=== PATIENT | female | born 1960 | race Caucasian/White ===

== ENCOUNTER 2017-06-11 21:29 | Emergency (ER) | payer BC ==
[~2017-06-11] VITALS: Ht 162.6 cm; Wt 102.9 kg
[2017-06-11 21:33] VITALS: Ht 162.6 cm; Wt 102.9 kg
[2017-06-11] MEDS ORDERED: LORAZEPAM 2 MG/ML 1 ML VIAL IV STA (21:52)
[2017-06-11 22:05] VITALS: O2SAT 95
[2017-06-11 22:15] LABS: HEMATOCRIT 34.9 % (37-47); HEMOGLOBIN 11.8 g/dL (12.0-16.0); MEAN CELL VOLUME 88.8 fL (80-100); MEAN CORPUSCULAR HGB CONC 33.8 g/dl (32-36); PLATELET COUNT 248 K/uL (130-400); RED CELL DISTRIBUTION WIDTH CV 13.1 % (11.5-14.5); RED CELL DISTRIBUTION WIDTH SD 42.8 fL (36.4-46.3); WHITE BLOOD COUNT 16.21 K/uL (4.8-10.8)
[2017-06-11] MEDS ORDERED: FURO-85 PO (22:27)
[2017-06-11] MEDS ORDERED: HYDR-4079 PO (22:27)
[2017-06-11] MEDS ORDERED: CITA20TA9 PO (22:27)
[2017-06-11] MEDS ORDERED: CALC600T9 PO (22:27)
[2017-06-11] MEDS ORDERED: ALBU18002 INH (22:27)
[2017-06-11] MEDS ORDERED: MULT-240 PO (22:27)
[2017-06-11 22:33] LABS: ALBUMIN 3.5 gm/dl (3.4-5.0); ALT/SGPT 44 U/L (12-78); BLOOD UREA NITROGEN 24 mg/dl (7-18); CALCIUM 8.7 mg/dl (8.5-10.1); CARBON DIOXIDE 23 mmol/L (21-32); CREATININE 1.26 mg/dl (0.60-1.20); GLUCOSE 146 mg/dl (70-99); POTASSIUM 3.5 mmol/L (3.5-5.1); SODIUM 132 mmol/L (136-145)
[2017-06-11 22:44] LABS: ALKALINE PHOSPHATASE 109 U/L (45-117); AST/SGOT 31 U/L (15-37); CKMB < 0.5 ng/ml (0.5-3.6); TOTAL PROTEIN 7.4 gm/dl (6.4-8.2)
[2017-06-11 22:48] LABS: BASO % 0.1 %; BASO ABS # 0.01 K/uL (0-0.2); IG# 0.08 K/uL (0.00-0.02); LYMPH % 2.7 %; LYMPH ABS # 0.44 K/uL (1.2-3.4); MONO % 4.6 %; MONO ABS # 0.74 K/uL (0.11-0.59); NEUT % 92.1 %; NEUT ABS # 14.94 K/uL (1.4-6.5)
[2017-06-11] MEDS ORDERED: ACETAMINOPHEN 500 MG TAB PO STA (23:23)
[2017-06-11] MEDS ORDERED: SODIUM CHLORIDE 0.9% 1000ML 1,000 ML IV STA (23:23)
[2017-06-11 23:52] LABS: INFLUENZA B ANTIGEN Neg for Influ B (NEG)
[2017-06-11] MEDS ORDERED: AZITHROMYCIN 250 MG TAB PO STA (23:53)
[2017-06-11] MEDS ORDERED: AMOXICILLIN 250 MG CAP PO STA (23:53)
[2017-06-12 00:01] VITALS: BP 106/75; PULSE 94; TEMP 38.1; O2SAT 96
[2017-06-12] MEDS ORDERED: IBUPROFEN 800 MG TAB PO STA (00:02)
[2017-06-12] MEDS ORDERED: AZIT250T PO (00:07)
[2017-06-12] MEDS ORDERED: AMOX500C3 PO (00:07)
--- NOTE | 2017-06-12 04:27 | EMERGENCY ROOM VISIT NOTE ---
History First contact with patient: 21:37 Chief Complaint: ANXIETY Stated Complaint: HEADACHE, BODYACHES, ABDOMINAL PAIN, HEART PAIN Nursing Triage Summary: pt reports I have a hx of panic attacks and over the last weeks work is supper stressful and I have had an increase in these attacks . I also have uncontrollable crying . I have had 2 very bad attacks yesterday and today that leave my whole body aching and now have a BERKOWITZ that will not leave up. took advil 2 times today with no relief. History of Present Illness The patient is a 56 year old female who presents to the Emergency Room with complaints of stressful past 2 weeks at work who felt shaky and anxious yesterday and today. Patient also complains of headache. Patient states she has not had an anxiety attack in years. She states she has been very stressed out though these past few weeks at work. Patient states her whole body feels achy. Patient denies chest pain, dyspnea, fever, chills, cough, congestion, abdominal pain, neck stiffness, sore throat. She is tolerating p.o. fluids but has a lack of appetite. Review of Systems An 10 system review of systems was completed with positives and pertinent negatives listed in the HPI. Past Medical/Surgical History Hypertension, arthritis, asthma, hysterectomy, gastric bypass Social History Smoking Status: Never Smoker Smokeless Tobacco Use: No Drug Use: none Occupation Status: employed Current/Historical Medications Scheduled Amoxicillin (Amoxil), 1,000 MG PO BID Azithromycin (Zithromax), 250 MG PO DAILY Calcium Carbonate-Vitamin D (Calcium + D), 1 TAB PO DAILY Citalopram Hydrobromide (Celexa), 20 MG PO DAILY Multiple Vitamins W/ Minerals (Womens One Daily), 1 TAB PO DAILY Scheduled PRN Albuterol Sulfate (Proair Respiclick), 2 PUFFS INH UD PRN for SOB/Wheezing Furosemide (Lasix), 20 MG PO DAILY PRN for Fluid Retention Hydrocodone/Acetaminophen 10MG/325MG ([place] 10MG/325MG), 1 TAB PO Q6H PRN for Pain Physical Exam Vital Signs Date Time Temp Pulse Resp B/P (MAP) Pulse Ox O2 Delivery O2 Flow Rate FiO2 06/12/17 00:01 38.1 94 20 106/75 96 Room Air 06/11/17 23:15 39.1 101 20 123/85 96 Room Air 06/11/17 22:05 95 Room Air 06/11/17 22:03 103 06/11/17 21:33 37.8 110 20 120/75 97 Room Air Physical Exam VITALS: Vitals are noted on the nurse's note and reviewed by myself. Vital signs low-grade fever. GENERAL: Pleasant female, in no acute distress, nondiaphoretic, well-developed well-nourished. SKIN: The skin was without rashes, erythema, edema, or bruising. There is no tenting of the skin. Capillary reflex less than 2 seconds. HEAD: Normocephalic atraumatic. EARS: External auditory canals clear, tympanic membranes pearly dickerson without erythema or effusion bilaterally. EYES: Pupils equal round and reactive to light and accommodation. Conjunctivae without injection, sclerae without icterus. Extraocular movements intact. NOSE: Patent, turbinates without inflammation or discharge. No sinus tenderness. MOUTH: Mucous membranes mildly dry pharynx without erythema or exudate. Uvula midline. Airway patent. Tongue does not deviate. NECK: Supple without nuchal rigidity. No lymphadenopathy. No thyromegaly. Cervical spine is nontender. No JVD. HEART: Regular rate and rhythm without murmurs gallops or rubs. LUNGS: Clear to auscultation bilaterally without wheezes, rales or rhonchi. No retractions or accessory muscle use. ABDOMEN: Positive bowel sounds x 4. Normal tympanic percussion. Soft, nontender, without masses or organomegaly. Arguelles sign negative. No guarding or rebound tenderness. No CVA tenderness MUSCULOSKELETAL: No muscle atrophy, erythema, or edema noted. NEURO: Patient was alert and oriented to person place and time. Normal sensation to light and sharp touch. No focal neurological deficits. Medical Decision & Procedures Laboratory Results 06/11/17 22:05 Red Blood Count 3.93, Mean Corpuscular Volume 88.8, Mean Corpuscular Hemoglobin 30.0, Mean Corpuscular Hemoglobin Concent 33.8, Mean Platelet Volume 10.0, Neutrophils (%) (Auto) 92.1, Lymphocytes (%) (Auto) 2.7, Monocytes (%) (Auto) 4.6, Eosinophils (%) (Auto) 0.0, Basophils (%) (Auto) 0.1, Neutrophils # (Auto) 14.94, Lymphocytes # (Auto) 0.44, Monocytes # (Auto) 0.74, Eosinophils # (Auto) 0.00, Basophils # (Auto) 0.01 06/11/17 22:05 Test 06/11/17 22:05 06/11/17 23:25 White Blood Count 16.21 K/uL (4.8-10.8) Red Blood Count 3.93 M/uL (4.2-5.4) Hemoglobin 11.8 g/dL (12.0-16.0) Hematocrit 34.9 % (37-47) Mean Corpuscular Volume 88.8 fL (80-100) Mean Corpuscular Hemoglobin 30.0 pg (25-34) Mean Corpuscular Hemoglobin Concent 33.8 g/dl (32-36) Platelet Count 248 K/uL (130-400) Mean Platelet Volume 10.0 fL (7.4-10.4) Neutrophils (%) (Auto) 92.1 % Lymphocytes (%) (Auto) 2.7 % Monocytes (%) (Auto) 4.6 % Eosinophils (%) (Auto) 0.0 % Basophils (%) (Auto) 0.1 % Neutrophils # (Auto) 14.94 K/uL (1.4-6.5) Lymphocytes # (Auto) 0.44 K/uL (1.2-3.4) Monocytes # (Auto) 0.74 K/uL (0.11-0.59) Eosinophils # (Auto) 0.00 K/uL (0-0.5) Basophils # (Auto) 0.01 K/uL (0-0.2) RDW Standard Deviation 42.8 fL (36.4-46.3) RDW Coefficient of Variation 13.1 % (11.5-14.5) Immature Granulocyte % (Auto) 0.5 % Immature Granulocyte # (Auto) 0.08 K/uL (0.00-0.02) Toxic Vacuolation 1+ Dohle Bodies 1+ Anion Gap 10.0 mmol/L (3-11) Est Creatinine Clear Calc Drug Dose 59.6 ml/min Estimated GFR () 55.9 Estimated GFR (Non- 48.3 BUN/Creatinine Ratio 18.9 (10-20) Calcium Level 8.7 mg/dl (8.5-10.1) Magnesium Level 2.1 mg/dl (1.8-2.4) Total Bilirubin 0.5 mg/dl (0.2-1) Direct Bilirubin 0.2 mg/dl (0-0.2) Aspartate Amino Transf (AST/SGOT) 31 U/L (15-37) Alanine Aminotransferase (ALT/SGPT) 44 U/L (12-78) Alkaline Phosphatase 109 U/L (45-117) Total Creatine Kinase 42 U/L (26-192) Creatine Kinase MB < 0.5 ng/ml (0.5-3.6) Creatine Kinase MB Ratio (0-3.0) Troponin I < 0.015 ng/ml (0-0.045) Total Protein 7.4 gm/dl (6.4-8.2) Albumin 3.5 gm/dl (3.4-5.0) Thyroid Stimulating Hormone (TSH) 1.290 uIu/ml (0.300-4.500) Influenza Type A Antigen Neg for Influ A (NEG) Influenza Type B Antigen Neg for Influ B (NEG) Medications Administered Medications (Trade) Dose Ordered Sig/Damien Route Start Time Stop Time Status Last Admin Dose Admin Lorazepam (Ativan Inj) 1 mg NOW STAT IV 06/11/17 21:52 06/11/17 21:54 DC 06/11/17 22:10 1 MG Sodium Chloride 1,000 ml @ 999 mls/hr Q1H1M STAT IV 06/11/17 23:23 06/12/17 00:23 DC 06/11/17 23:27 999 MLS/HR Acetaminophen (Tylenol Tab) 1,000 mg NOW STAT PO 06/11/17 23:23 06/11/17 23:25 DC 06/11/17 23:29 1,000 MG Azithromycin (Zithromax Tab) 500 mg NOW STAT PO 06/11/17 23:53 06/11/17 23:54 DC 06/11/17 23:59 500 MG Amoxicillin (Amoxil Cap) 1,000 mg NOW STAT PO 06/11/17 23:53 06/11/17 23:54 DC 06/11/17 23:59 1,000 MG Ibuprofen (Motrin Tab) 800 mg NOW STAT PO 06/12/17 00:02 06/12/17 00:03 DC 06/12/17 00:14 800 MG ED Course Prior records/ancillary studies reviewed and summarized above. Nursing notes reviewed. Additional history obtained from friends. The patient's history was concerning for shakiness who has been under more stress lately. Differential diagnosis: Etiologies such as anxiety, metabolic, infection, hypo/hyperglycemia, electrolyte abnormalities, cardiac sources, intracerebral event, toxicologic, neurologic, as well as others were entertained. Physical examination: As above. ER treatment provided: IV Lock Ativan, IV fluids, Tylenol, Motrin, Zithromax, amoxicillin On reassessment the patient felt better. Diagnostics interpretation by me: ECG: Normal sinus, normal intervals, Q waves in the inferior leads, no acute ST- T wave changes, rate of 101. Impression sinus tachycardia with Q waves in inferior leads interpreted by myself. EKG compared to prior EKG from May 04, 2012 with no acute changes noted. This was obtained through the [employer] system by case management. The labs revealed leukocytosis, negative influenza Imaging studies: Chest x-ray concerning for possible developing right middle lobe pneumonia per my interpretation and my attending Exam and history seem consistent with pneumonia. Patient had a fever here and was given Tylenol and Motrin. She was started on antibiotics. Patient was not hypoxic. Her pressure was stable. She did not realize she was getting sick. 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 Patient was advised to take medications as directed, rest, stay well-hydrated and to follow-up with family care in a few days here in the ER sooner for high fevers, lethargy, difficulty breathing, neck stiffness, worsening signs or symptoms or as needed. By the evaluation outlined above emergent etiologies such as electrolyte abnormalities, cardiac sources, intracerebral event, toxologic, neurologic, abnormalities blood glucose, metabolic, as well as others were deemed relatively unlikely. The pt informed about the findings as listed above. All questions were answered and pleased with the treatment. Return instructions were outlined and the patient was discharged in stable condition. Outpatient prescription management: Zithromax, amoxicillin Referral: The patient was referred back to primary care physician for follow-up in 2 to 3 days for a recheck of the current condition. Case reviewed with my attending The chart was completed utilizing [employer] voice recognition software. Grammatical errors, random word insertions, pronoun errors, and incomplete sentences are an occassional consequence of this system due to software limitations, ambient noise, and hardware issues. Any formal questions or concerns about the content, text, or information contained within the body of this dictation should be directly addressed to the physician litigation legal assistant for clarification. Medical Decision as above Medication Reconcilliation Current Medication List: was personally reviewed by me Blood Pressure Screening Patient's blood pressure: Normal blood pressure Impression Primary Impression: Pneumonia Departure Information Dispostion Home / Self-Care Condition GOOD Prescriptions Azithromycin (Zithromax) 250 Mg Tab 250 MG PO DAILY for 4 Days, #4 TAB Prov: Chiquita Reddy PA-C 06/12/17 Amoxicillin (AMOXIL) 500 Mg Cap 1000 MG PO BID for 10 Days, #40 CAP Prov: Chiquita Reddy PA-C 06/12/17 Forms HOME CARE DOCUMENTATION FORM, Work Instructions, Return To Work: 5 days IMPORTANT VISIT INFORMATION Patient Instructions Pneumonia, My [facility] Additional Instructions DO NOT drive, drink alcohol, operate machinery, or perform dangerous activities today. You were given medications in the ER that can affect your ability to safely function or operate a vehicle. Azithromycin(Zithromax) 250mg: Take one a day for 4 additional days. All antibiotics can cause diarrhea. If this occurs and you feel worse or it does not resolve in 1-2 days follow up with your doctor or return to the Emergency Department as this could be signs of serious underlying problems. Any medication can cause an allergic reaction, stop the pills immediately and return to the ER for rash, hives, breathing difficulties, or swelling. Amoxicillin 500mg: Take 2 tablets (1000mg) twice a day for 10 days for your infection. All antibiotics can cause diarrhea. If this occurs and you feel worse or it does not resolve in 1-2 days follow up with your doctor or return to the Emergency Department as this could be signs of serious underlying problems. Any medication can cause an allergic reaction, stop the pills immediately and return to the ER for rash, hives, breathing difficulties, or swelling. Acetaminophen(Tylenol) may be used for fever or pain. Use 1000mg every six hours as needed. Avoid using more than 3000mg in a 24 hour period. AND/OR Ibuprofen(Motrin, Advil) may be used for fever or pain. Use 600mg every six hours as needed. Take with food. Avoid using more than 2400mg in a 24 hour period. Do not use 2400mg per day for more than three consecutive days without physician direction. Prolonged inappropriate use can lead to stomach upset or ulcers. Controlling your fever with Tylenol and Ibuprofen as above will make you feel better. Rest and drink plenty of fluids. Avoid strenuous activity until your symptoms resolve and your breathing returns to normal. Continue current medications. Return to the ER for chest pain, difficulty breathing, persistent fevers, vomiting, worsening of your condition, or as needed. Follow-up with family care in 2-3 days. Work Instructions Return To Work: 5 days Problem Qualifiers Primary Impression: Pneumonia Pneumonia type: due to unspecified organism Laterality: right Lung location : middle lobe of lung Qualified Codes: J18.1 - Lobar pneumonia, unspecified organism
--- NOTE | 2017-06-12 07:16 | DIAGNOSTIC IMAGING REPORT ---
CHEST 2 VIEWS ROUTINE CLINICAL HISTORY: 56 years-old Female presenting with fever. TECHNIQUE: PA and lateral views of the chest were obtained. COMPARISON: None. FINDINGS: Atherosclerosis of the aortic arch. Cardiac silhouette normal in size. Blunting of the left lateral costophrenic sulcus without evidence of a left pleural effusion. Lungs and pleural spaces clear. Degenerative changes of the thoracic spine. Upper abdomen normal. IMPRESSION: 1. No acute cardiopulmonary disease. Electronically signed by: Bunny Aden M.D. 06/12/2017 7:15 AM Dictated Date/Time: 06/12/2017 7:14 AM
== END 2017-06-12 00:20 | disposition home or self-care (01) ==
LOC: C.EDB 21:31
DX: J18.1 Lobar pneumonia, unspecified organism (principal); I10 Essential (primary) hypertension; M19.90 Unspecified osteoarthritis, unspecified site; J45.909 Unspecified asthma, uncomplicated

== ENCOUNTER 2021-10-31 23:05 | Inpatient (IN) ==
--- NOTE | 2021-10-31 23:37 | Emergency Department Note ---
Impression & Plan Acute hyponatremia Admit to the [facility] service ED Provider Note NAME: BIJU IRBY AGE: 60 SEX: F ARRIVES VIA: Ambulance INFORMANT: Patient ED PROVIDER(S): Yeni Ellis DO CHIEF COMPLAINT: Confusion PLAN: Disposition: Admit to the [facility] Condition: Stable MEDICAL DECISION MAKING: This is a 60-year-old female patient who presents to the emergency department from work after an episode of confusion. Patient had a normal blood sugar here in the emergency department. She went for CT scan of the brain which was unremarkable. The patient was noted to be significantly hyponatremic. She did give a history that she drank a significant amount of water and a new 30 ounce cup that she purchased on [employer]. It seems that she may have drank between 90 and 120 ounces of water within 8 hours. In reviewing the patient's previous laboratory studies, she has had previous mild low sodium. Patient was given IV normal saline here in the emergency department and I discussed the case with the [facility]ist and they will evaluate for further management. Triage Nursing notes reviewed and agree with them. Additional history obtained from patient's daughter who was at the bedside. Vital Signs: reviewed and unremarkable Differential diagnosis: Hypoglycemia; TIA; anxiety; insomnia; electrolyte abnormality ER treatment provided: IV normal saline Diagnostics interpreted by me: ECG: Sinus bradycardia at a rate of [address] segment elevation or signs of ischemia. There is no ectopy. Cardiac Monitoring: Normal sinus rhythm at 72 Laboratory studies: See below Imaging studies: As per stat rad CT HEAD: No intracranial hemorrhage, abnormal intra- or extra-axial collections or parenchymal lesions are seen. The shape and configuration of the cortical sulci, basal cisterns and ventricles are within normal limits. The post-white differentiation is preserved. No evidence of mass effect, midline shift, or edema. The osseous structures are unremarkable. The visualized portions of the paranasal sinuses are clear. IMPRESSION: Normal non-contrast CT scan of the head. HPI: 60/F arrives for evaluation of confusion. The patient was at work and had an episode of confusion around 5 PM this evening she was unable to remember how to log into her computer and then around 10 PM this evening the same thing occurred where she was unable to remember her last name. Patient's blood sugar was taken at that time and it was 80. She explains that she has had episodes of confusion and was noted to have low blood sugars in the 30s. ROS: See above HPI for pertinent positives & negatives. A total of 10 systems reviewed and were otherwise negative. PAST MEDICAL HISTORY:Osteoarthritis, hypertension, anxiety/depression PAST SURGICAL HISTORY:Gastric bypass surgery FAMILY HISTORY:See Below SOCIAL HISTORY:Patient denies any alcohol use. HOME MEDICATIONS:See list ALLERGIES:None VITALS:See Below PHYSICAL EXAMINATION: HEENT: Head - normocephalic and atraumatic. Pupils are equal, round, and reactive to light. Extraocular eye muscles are intact and sclera are anicteric. Ears - bilaterally patent canals with noninjected tympanic membranes and no evidence of hemotympanum. Nose - moist nasal mucosa without discharge. Mouth - moist buccal mucosa. Oropharynx is nonerythematous and there is no tonsillar exudate or edema noted. Neck: Supple; no cervical lymphadenopathy or thyromegaly Heart: Regular rate and rhythm. There is a normal S1 and S2 with no murmurs, cl icks, or gallops appreciated. Lungs: Clear to auscultation bilaterally with no wheezes, rales, or rhonchi. Abdomen: Soft, completely nontender, nondistended, with good bowel sounds. There are no palpable pulsatile masses or hepatosplenomegaly. There is no guarding, rigidity, or rebound noted. Extremities: No evidence of cyanosis, clubbing, or edema. There are easily palpable peripheral pulses. Neuro:The patient is awake and alert, oriented to day, time, and place. Muscle strength is 5/5 in all 4 extremities. 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 There are no cerebellar signs. ED COURSE: Times/Reassessments: 2315: The patient was evaluated in room C1. A complete history and physical was performed. A twelve-lead EKG was obtained as described above. An order was placed for continuous cardiac monitoring. The patient was in a normal sinus rhythm at a rate of 72. The patient was bolused with a liter of normal saline solution. Discussed the case with the [facility] Hospitalist and they will evaluate for further management. 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 Beliefs That Will Affect Care: None Current Living Situation: Family Other Information That Helps Us Care for You: No Feels Safe at Home: Yes Safety Concerns: Feels Safe At This Time Allergies Allergies Allergy/AdvReac Type Severity Reaction Status Date / Time No Known Allergies Allergy Unknown Verified 10/31/21 23:55 Home Meds Home Medications Medication Instructions Recorded Confirmed acetaminophen 500 mg tablet 1,000 mg PO DIRECTED PRN Pain 10/31/21 10/31/21 (Tylenol Extra Strength) clonazepam 0.5 mg tablet 0.5 mg PO BID PRN Anxiety 10/31/21 10/31/21 docusate sodium 250 mg capsule 250 mg PO TID 10/31/21 10/31/21 (Stool Softener) losartan 25 mg tablet 25 mg PO DAILY 10/31/21 10/31/21 metoprolol tartrate 50 mg tablet 50 mg PO BID 10/31/21 10/31/21 paroxetine HCl 10 mg tablet 10 mg PO Q12H 10/31/21 10/31/21 psyllium husk 0.52 gram capsule 2.18 g PO TID 10/31/21 10/31/21 Results & Data (ED) Vital Signs Vital Signs - 24 hr 10/31/21 23:32 10/31/21 23:32 10/31/21 23:32 Temperature 37.1 C Temperature Source Oral Pulse Rate 57 L Pulse Rate [Apical] Respiratory Rate 18 Respiratory Effort / Characteristics Non-Labored Spontaneous Respiratory Depth Normal Blood Pressure 147/95 H Blood Pressure [Right Arm] Blood Pressure Mean 112 Blood Pressure Mean [Right Arm] Blood Pressure Position [Right Arm] Pulse Oximetry 99 100 96 Oxygen Delivery Method Room Air Room Air Sepsis Recent Fever Within 48 Hours No Sepsis New/Unexplained Change in Mental Status No Sepsis Action Taken by Nursing No Action Required 11/01/21 01:52 11/01/21 03:27 Temperature Temperature Source Pulse Rate Pulse Rate [Apical] 56 L 60 Respiratory Rate 18 18 Respiratory Effort / Characteristics Non-Labored Spontaneous Respiratory Depth Normal Blood Pressure Blood Pressure [Right Arm] 138/97 130/99 Blood Pressure Mean Blood Pressure Mean [Right Arm] 110 109 Blood Pressure Position [Right Arm] Sitting Pulse Oximetry 100 97 Oxygen Delivery Method Room Air Room Air Sepsis Recent Fever Within 48 Hours Sepsis New/Unexplained Change in Mental Status Sepsis Action Taken by Nursing Laboratory Data Result diagrams: 11/01/21 05:22 08/11/22 05:22 Lab Results 10/31/21 10/31/21 10/31/21 Range/Units 23:30 23:55 23:55 WBC 6.33 (4.8-10.8) K/ul RBC 4.00 (3.93-5.22) M/uL Hgb 12.0 (12.0-16.0) g/dl Hct 34.9 (34.1-44.9) % MCV 87.3 (80.0-100.0) fL MCH 30.0 (25.0-34.0) pg MCHC 34.4 (32.0-36.0) g/dL RDW Std Deviation 38.5 (36.4-46.3) fL RDW Coeff of [place] 11.9 (11.5-14.5) % Plt Count 258 (130-400) K/uL MPV 10.8 (9.4-12.3) fL Immature Gran % (Auto) 0.5 % Neut % (Auto) 61.6 % Lymph % (Auto) 24.8 % [place] % (Auto) 9.0 % Eos % (Auto) 3.5 % Baso % (Auto) 0.6 % Neut # (Auto) 3.90 (1.4-6.5) K/uL Lymph # (Auto) 1.57 (1.2-3.4) K/uL [place] # (Auto) 0.57 (0.24-0.82) K/uL Eos # (Auto) 0.22 (0-0.50) K/uL Baso # (Auto) 0.04 (0-0.2) K/uL Immature Gran # (Auto) 0.03 H (0.00-0.02) K/uL Sodium 128 L (136-145) mmol/L Potassium 4.5 (3.5-5.1) mmol/L Chloride 98 (98-107) mmol/L Carbon Dioxide 24 (21-32) mmol/L Anion Gap 6 (3-11) BUN 25 H (6-23) mg/dl Creatinine 1.04 (0.6-1.2) mg/dl Est Cr Clr Drug Dosing 74.8 ml/min Est GFR ( Amer) 68.6 ml/min Est GFR (Non-Af Amer) 59.2 ml/min BUN/Creatinine Ratio 24.0 H (10-20) Glucose 89 (70-99(Fasting)) mg/dl POC Glucose 110 H (70-99) mg/dl Osmolality (280-300) mOsm/kg Calcium 9.2 (8.5-10.1) mg/dl Magnesium 2.0 (1.7-2.4) mg/dl Total Bilirubin 0.5 (0.2-1.0) mg/dl AST 23 (13-39) U/L ALT 19 (7-52) U/L Alkaline Phosphatase 92 (34-104) U/L Total Protein 6.7 (6.0-8.3) gm/dl Albumin 4.2 (3.4-5.0) gm/dl Globulin 2.5 (2.5-4.0) gm/dl Albumin/Globulin Ratio 1.7 (0.9-2) TSH (0.300-4.500) uIu/ml Urine Color Urine Appearance (Clear) Urine pH (4.5-7.5) Ur Specific [place] (1.000-1.030) Urine Protein (Negative) Urine Glucose (UA) (Negative) Urine Ketones (Negative) Urine Blood (Negative) Urine Nitrite (Negative) Urine Bilirubin (Negative) Urine Urobilinogen (Negative) Ur Leukocyte Esterase (Negative) Urine WBC (Auto) (0-5) /hpf Urine RBC (Auto) (0-4) /hpf U Hyaline Cast (Auto) (0-5) /lpf U Epithel Cells (Auto) (0-5) /lpf Urine Bacteria (Auto) (Negative) SARS-CoV-2, RNA, NAAT (NEGATIVE) 10/31/21 10/31/21 11/01/21 Range/Units 23:55 23:55 00:34 WBC (4.8-10.8) K/ul RBC (3.93-5.22) M/uL Hgb (12.0-16.0) g/dl Hct (34.1-44.9) % MCV (80.0-100.0) fL MCH (25.0-34.0) pg MCHC (32.0-36.0) g/dL RDW Std Deviation (36.4-46.3) fL RDW Coeff of [place] (11.5-14.5) % Plt Count (130-400) K/uL MPV (9.4-12.3) fL Immature Gran % (Auto) % Neut % (Auto) % Lymph % (Auto) % [place] % (Auto) % Eos % (Auto) % Baso % (Auto) % Neut # (Auto) (1.4-6.5) K/uL Lymph # (Auto) (1.2-3.4) K/uL [place] # (Auto) (0.24-0.82) K/uL Eos # (Auto) (0-0.50) K/uL Baso # (Auto) (0-0.2) K/uL Immature Gran # (Auto) (0.00-0.02) K/uL Sodium (136-145) mmol/L Potassium (3.5-5.1) mmol/L Chloride (98-107) mmol/L Carbon Dioxide (21-32) mmol/L Anion Gap (3-11) BUN (6-23) mg/dl Creatinine (0.6-1.2) mg/dl Est Cr Clr Drug Dosing ml/min Est GFR ( Amer) ml/min Est GFR (Non-Af Amer) ml/min BUN/Creatinine Ratio (10-20) Glucose (70-99(Fasting)) mg/dl POC Glucose (70-99) mg/dl Osmolality 279 L (280-300) mOsm/kg Calcium (8.5-10.1) mg/dl Magnesium (1.7-2.4) mg/dl Total Bilirubin (0.2-1.0) mg/dl AST (13-39) U/L ALT (7-52) U/L Alkaline Phosphatase (34-104) U/L Total Protein (6.0-8.3) gm/dl Albumin (3.4-5.0) gm/dl Globulin (2.5-4.0) gm/dl Albumin/Globulin Ratio (0.9-2) TSH 1.674 (0.300-4.500) uIu/ml Urine Color Yellow Urine Appearance Clear (Clear) Urine pH 5.5 (4.5-7.5) Ur Specific [place] 1.005 (1.000-1.030) Urine Protein Negative (Negative) Urine Glucose (UA) Negative (Negative) Urine Ketones Negative (Negative) Urine Blood Negative (Negative) Urine Nitrite Negative (Negative) Urine Bilirubin Negative (Negative) Urine Urobilinogen Negative (Negative) Ur Leukocyte Esterase Trace H (Negative) Urine WBC (Auto) 1-5 (0-5) /hpf Urine RBC (Auto) 0-4 (0-4) /hpf U Hyaline Cast (Auto) 0 (0-5) /lpf U Epithel Cells (Auto) 10-20 H (0-5) /lpf Urine Bacteria (Auto) 2+ H (Negative) SARS-CoV-2, RNA, NAAT (NEGATIVE) 11/01/21 Range/Units 02:47 WBC (4.8-10.8) K/ul RBC (3.93-5.22) M/uL Hgb (12.0-16.0) g/dl Hct (34.1-44.9) % MCV (80.0-100.0) fL MCH (25.0-34.0) pg MCHC (32.0-36.0) g/dL RDW Std Deviation (36.4-46.3) fL RDW Coeff of [place] (11.5-14.5) % Plt Count (130-400) K/uL MPV (9.4-12.3) fL Immature Gran % (Auto) % Neut % (Auto) % Lymph % (Auto) % [place] % (Auto) % Eos % (Auto) % Baso % (Auto) % Neut # (Auto) (1.4-6.5) K/uL Lymph # (Auto) (1.2-3.4) K/uL [place] # (Auto) (0.24-0.82) K/uL Eos # (Auto) (0-0.50) K/uL Baso # (Auto) (0-0.2) K/uL Immature Gran # (Auto) (0.00-0.02) K/uL Sodium (136-145) mmol/L Potassium (3.5-5.1) mmol/L Chloride (98-107) mmol/L Carbon Dioxide (21-32) mmol/L Anion Gap (3-11) BUN (6-23) mg/dl Creatinine (0.6-1.2) mg/dl Est Cr Clr Drug Dosing ml/min Est GFR ( Amer) ml/min Est GFR (Non-Af Amer) ml/min BUN/Creatinine Ratio (10-20) Glucose (70-99(Fasting)) mg/dl POC Glucose (70-99) mg/dl Osmolality (280-300) mOsm/kg Calcium (8.5-10.1) mg/dl Magnesium (1.7-2.4) mg/dl Total Bilirubin (0.2-1.0) mg/dl AST (13-39) U/L ALT (7-52) U/L Alkaline Phosphatase (34-104) U/L Total Protein (6.0-8.3) gm/dl Albumin (3.4-5.0) gm/dl Globulin (2.5-4.0) gm/dl Albumin/Globulin Ratio (0.9-2) TSH (0.300-4.500) uIu/ml Urine Color Urine Appearance (Clear) Urine pH (4.5-7.5) Ur Specific [place] (1.000-1.030) Urine Protein (Negative) Urine Glucose (UA) (Negative) Urine Ketones (Negative) Urine Blood (Negative) Urine Nitrite (Negative) Urine Bilirubin (Negative) Urine Urobilinogen (Negative) Ur Leukocyte Esterase (Negative) Urine WBC (Auto) (0-5) /hpf Urine RBC (Auto) (0-4) /hpf U Hyaline Cast (Auto) (0-5) /lpf U Epithel Cells (Auto) (0-5) /lpf Urine Bacteria (Auto) (Negative) SARS-CoV-2, RNA, NAAT NEGATIVE (NEGATIVE) Administered Medications Discontinued Medications Hydrocodone Bitart/Acetaminophen (Hydrocodone/Acetamophen 5/325mg Tab) 1 tab PO NOW STA Stop: 11/01/21 03:55 Last Admin: 11/01/21 04:21 Dose: 1 tab Documented By: FRANCIA Clonazepam (Clonazepam 0.5 Mg Tab) 0.5 mg PO NOW STA Stop: 11/01/21 03:55 Last Admin: 11/01/21 04:21 Dose: 0.5 mg Documented By: FRANCIA Sodium Chloride (Nss 1000ml) 1,000 mls @ 999 mls/hr IV .Q1H1M ONE Stop: 11/01/21 02:40 Last Infusion: 11/01/21 03:20 Dose: 0 mls/hr Documented By: Admin: 11/01/21 01:52 Dose: 999 mls/hr Documented By: GERMAN Metoprolol Tartrate (Metoprolol Tartrate 25 Mg Tab) 12.5 mg PO NOW STA Stop: 11/01/21 03:55 Last Admin: 11/01/21 04:21 Dose: 12.5 mg Documented By: FRANCIA Paroxetine HCl (Paroxetine Hcl 10 Mg Tab) 10 mg PO NOW ONE Stop: 11/01/21 03:55 Last Admin: 11/01/21 04:21 Dose: 10 mg Documented By: FRANCIA Imaging Data Radiologist's Impression: Chest X-Ray 11/01/21 02:53 XR chest 1V portable HISTORY: 60 years-old Female hyponatremia COMPARISON: Chest radiographs 06/11/2017 TECHNIQUE: AP view of the chest FINDINGS: Cardiomediastinal and hilar silhouettes are within normal limits. No pneumothorax, pleural effusion, airspace consolidation or overt pulmonary edema. Degenerative changes of the shoulders and spine. IMPRESSION: No acute process. ACT 112: Negative or not required by law. The above report was generated using voice recognition software. It may contain grammatical, syntax or spelling errors. Electronically signed by: Adria Delgado M.D. 11/01/2021 6:53 AM Discharge Plan Visit Data Chief Complaint: Confusion Stated Complaint: confusion ED Provider: Yeni Ellis Discharge Problem: Acute hyponatremia Patient Disposition: Admitted As Inpatient Discharge Instructions Interventions: ED Discharge Assessment Last Done: 11/01/21 06:42
[2021-11-01 00:08] LABS: Basophils # (auto) 0.04 K/uL (0-0.2); Basophils % (auto) 0.6 %; Eosinophils # (auto) 0.22 K/uL (0-0.50); Eosinophils % (auto) 3.5 %; Hematocrit (blood only) 34.9 % (34.1-44.9); Immature Granulocytes # (auto) 0.03 K/uL (0.00-0.02); Immature Granulocytes % (auto) 0.5 %; Lymphocytes # (auto) 1.57 K/uL (1.2-3.4); Lymphocytes % (auto) 24.8 %; Mean Corpuscular Hgb Conc 34.4 g/dL (32.0-36.0); Mean Corpuscular Volume 87.3 fL (80.0-100.0); Mean Platelet Volume 10.8 fL (9.4-12.3); Monocytes # (auto) 0.57 K/uL (0.24-0.82); Neutrophils % (auto) 61.6 %; Platelet Count 258 K/uL (130-400); RDW Coefficient of Variation 11.9 % (11.5-14.5); RDW Standard Deviation 38.5 fL (36.4-46.3); White Blood Count 6.33 K/ul (4.8-10.8)
[2021-11-01 00:34] LABS: Albumin Globulin Ratio 1.7 (0.9-2); Albumin Level 4.2 gm/dl (3.4-5.0); Bilirubin,Total 0.5 mg/dl (0.2-1.0); Calcium 9.2 mg/dl (8.5-10.1); Creatinine Clr Calc Pharmacy 74.8 ml/min; Est GFR (African American) 68.6 ml/min; Est GFR (Non-African American) 59.2 ml/min; Globulin 2.5 gm/dl (2.5-4.0); Potassium 4.5 mmol/L (3.5-5.1); Total Protein 6.7 gm/dl (6.0-8.3)
[2021-11-01 01:01] LABS: Appearance Urine Clear (Clear); Bacteria Urine Automated 2+ (Negative); Bilirubin Urine Negative (Negative); Blood Urine Negative (Negative); Cast Urine Automated 0 /lpf (0-5); Color Urine Yellow; Glucose Urine UA Negative (Negative); Ketones Urine Negative (Negative); Leukocyte Esterase Urine Trace (Negative); Nitrite Urine Negative (Negative); Protein Urine Negative (Negative); RBC Urine Automated 0-4 /hpf (0-4); Specific Gravity Urine 1.005 (1.000-1.030); Urobilinogen Urine Negative (Negative); pH Urine 5.5 (4.5-7.5)
[2021-11-01] MEDS ORDERED: SODIUM CHLORIDE 0.9% 1000ML 1,000 ML IV ONE (01:40)
--- NOTE | 2021-11-01 03:28 | History & Physical Report ---
Date of Service November 01, 2021 Assessment & Plan (1) Acute hyponatremia: Plan: Acute on chronic History polydipsia hypertension, slightly elevated hx pulmonary embolism status post Coumadin history of bariatric surgery chronic anemia, hemoglobin better than baseline likely secondary to hemoconcentration anxiety/mood disorder, at baseline past tobacco abuse. Medical telemetry Recheck serum sodium after initial fluid bolus given at the ER. Fluid restriction Patient counseled about adverse effects of excessive fluid intake on serum sodium in light of chronic hyponatremia Nephrology consult if without improvement. DVT prophylaxis. Lovenox subcu Full code Text document was generated using Mobile Captain voice recognition software. It may contain grammatical or spelling errors. Kindly contact undersigned for clarification of any documentation item in question. History of Present Illness Chief Complaint: Confusion as per records Primary Care Provider: Leonel Jc M.D. History obtained from patient and records. Medical history significant for hypertension, pulmonary embolism status post Co umadin, history of bariatric surgery, chronic anemia (baseline hemoglobin of 11), anxiety/mood disorder, chronic hyponatremia, past tobacco abuse. Patient has always been a water drinker. Usual consumption of 1.5 L daily. Yesterday, patient consumed more water than usual because it was a hot day at work. Patient thinks she may have consumed 3.5 L yesterday. Patient noted to be disoriented at work. Achy headache symptoms. No chest pain, no shortness of breath, no abdominal pain, no dysuria symptoms. NSS administered upon arrival at the ER. Patient feels much better. Patient mentation currently back to baseline as per daughter. 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 [employer] Allergies Allergy/AdvReac Type Severity Reaction Status Date / Time No Known Allergies Allergy Unknown Verified 10/31/21 23:55 Home Medications Medication Instructions Recorded Confirmed Type acetaminophen 500 mg tablet 1,000 mg PO DIRECTED PRN Pain 10/31/21 10/31/21 History (Tylenol Extra Strength) clonazepam 0.5 mg tablet 0.5 mg PO BID PRN Anxiety 10/31/21 10/31/21 History docusate sodium 250 mg capsule 250 mg PO TID 10/31/21 10/31/21 History (Stool Softener) losartan 25 mg tablet 25 mg PO DAILY 10/31/21 10/31/21 History metoprolol tartrate 50 mg tablet 50 mg PO BID 10/31/21 10/31/21 History paroxetine HCl 10 mg tablet 10 mg PO Q12H 10/31/21 10/31/21 History psyllium husk 0.52 gram capsule 2.18 g PO TID 10/31/21 10/31/21 History Past Med/Surg History Social History Smoking Status: Never smoker Tobacco Type: Cigarettes Hx Alcohol Use: No Hx Substance Use: No Preferred Language: Ukrainian Communication Ability: Effective Ripper Operator Required: No Beliefs That Will Affect Care: None Current Living Situation: Family Other Information That Helps Us Care for You: No Feels Safe at Home: Yes Safety Concerns: Feels Safe At This Time Review of Systems Review of Systems: As per HPI, all other systems reviewed and negative Physical Exam Physical Exam: GENERAL: Comfortable, morbidly obese, pleasant, no respiratory distress SKIN: Pallor, warm HEENT: Pale palpebral conjunctivae, no ptosis, dry buccal mucosa NECK : Supple, short neck, no tenderness CHEST : CTA, no tenderness HEART : Bradycardic, no obvious murmurs ABDOMEN: Some distention, nontender EXTREMITIES : Minimal LE swelling, no LE tenderness, no other conspicuous deformities noted NEUROLOGIC : Coherent, no facial asymmetry, no other gross focality Results & Data Results & Data ([facility]) Vital Signs (Past 12 Hours) Vital Signs Temp Pulse Pulse Resp BP BP Pulse Ox 11/01/21 01:52 56 L 18 138/97 100 10/31/21 23:32 96 10/31/21 23:32 100 10/31/21 23:32 37.1 C 57 L 18 147/95 H 99 O2 Del Method 11/01/21 01:52 Room Air 10/31/21 23:32 Room Air 10/31/21 23:32 10/31/21 23:32 Room Air Laboratory Results Laboratory Results WBC 6.33 K/ul (4.8-10.8) 10/31/21 23:55 RBC 4.00 M/uL (3.93-5.22) 10/31/21 23:55 Hgb 12.0 g/dl (12.0-16.0) 10/31/21 23:55 Hct 34.9 % (34.1-44.9) 10/31/21 23:55 MCV 87.3 fL (80.0-100.0) 10/31/21 23:55 MCH 30.0 pg (25.0-34.0) 10/31/21 23:55 MCHC 34.4 g/dL (32.0-36.0) 10/31/21 23: RDW Std Deviation 38.5 fL (36.4-46.3) 10/31/21 23: RDW Coeff of Nighat 11.9 % (11.5-14.5) 10/31/21 23:55 Plt Count 258 K/uL (130-400) 10/31/21 23: MPV 10.8 fL (9.4-12.3) 10/31/21 23:55 Immature Gran % (Auto) 0.5 % 10/31/21 23:55 Neut % (Auto) 61.6 % 10/31/21 23:55 Lymph % (Auto) 24.8 % 10/31/21 23:55 [place] % (Auto) 9.0 % 10/31/21 23:55 Eos % (Auto) 3.5 % 10/31/21 23:55 Baso % (Auto) 0.6 % 10/31/21 23:55 Neut # (Auto) 3.90 K/uL (1.4-6.5) 10/31/21 23:55 Lymph # (Auto) 1.57 K/uL (1.2-3.4) 10/31/21 23:55 [place] # (Auto) 0.57 K/uL (0.24-0.82) 10/31/21 23:55 Eos # (Auto) 0.22 K/uL (0-0.50) 10/31/21 23:55 Baso # (Auto) 0.04 K/uL (0-0.2) 10/31/21 23: Immature Gran # (Auto) 0.03 K/uL (0.00-0.02) H 10/31/21 23:55 Sodium 128 mmol/L (136-145) L 10/31/21 23:55 Potassium 4.5 mmol/L (3.5-5.1) 10/31/21 23:55 Chloride 98 mmol/L (98-107) 10/31/21 23:55 Carbon Dioxide 24 mmol/L (21-32) 10/31/21 23:55 Anion Gap 6 (3-11) 10/31/21 23:55 BUN 25 mg/dl (6-23) H 10/31/21 23:55 Creatinine 1.04 mg/dl (0.6-1.2) 10/31/21 23:55 Est Cr Clr Drug Dosing 74.8 ml/min 10/31/21 23:55 Est GFR ( Amer) 68.6 ml/min 10/31/21 23:55 Est GFR (Non-Af Amer) 59.2 ml/min 10/31/21 23:55 BUN/Creatinine Ratio 24.0 (10-20) H 10/31/21 23:55 Glucose 89 mg/dl (70-99(Fasting)) 10/31/21 23:55 POC Glucose 110 mg/dl (70-99) H 10/31/21 23:30 Osmolality 279 mOsm/kg (280-300) L 10/31/21 23:55 Calcium 9.2 mg/dl (8.5-10.1) 10/31/21 23:55 Magnesium 2.0 mg/dl (1.7-2.4) 10/31/21 23:55 Total Bilirubin 0.5 mg/dl (0.2-1.0) 10/31/21 23:55 AST 23 U/L (13-39) 10/31/21 23:55 ALT 19 U/L (7-52) 10/31/21 23:55 Alkaline Phosphatase 92 U/L (34-104) 10/31/21 23:55 Total Protein 6.7 gm/dl (6.0-8.3) 10/31/21 23:55 Albumin 4.2 gm/dl (3.4-5.0) 10/31/21 23:55 Globulin 2.5 gm/dl (2.5-4.0) 10/31/21 23:55 Albumin/Globulin Ratio 1.7 (0.9-2) 10/31/21 23:55 TSH 1.674 uIu/ml (0.300-4.500) 10/31/21 23:55 Urine Color Yellow 11/01/21 00:34 Urine Appearance Clear (Clear) 11/01/21 00:34 Urine pH 5.5 (4.5-7.5) 11/01/21 00:34 Ur Specific [place] 1.005 (1.000-1.030) 11/01/21 00:34 Urine Protein Negative (Negative) 11/01/21 00:34 Urine Glucose (UA) Negative (Negative) 11/01/21 00:34 Urine Ketones Negative (Negative) 11/01/21 00:34 Urine Blood Negative (Negative) 11/01/21 00:34 Urine Nitrite Negative (Negative) 11/01/21 00:34 Urine Bilirubin Negative (Negative) 11/01/21 00:34 Urine Urobilinogen Negative (Negative) 11/01/21 00:34 Ur Leukocyte Esterase Trace (Negative) H 11/01/21 00:34 Urine WBC (Auto) 1-5 /hpf (0-5) 11/01/21 00:34 Urine RBC (Auto) 0-4 /hpf (0-4) 11/01/21 00:34 U Hyaline Cast (Auto) 0 /lpf (0-5) 11/01/21 00:34 U Epithel Cells (Auto) 10-20 /lpf (0-5) H 11/01/21 00:34 Urine Bacteria (Auto) 2+ (Negative) H 11/01/21 00:34 SARS-CoV-2, RNA, NAAT NEGATIVE (NEGATIVE) 11/01/21 02:[address] head initial read: No intracranial hemorrhage, abnormal intra- or extra-axial collections or parenchymal lesions are seen. The shape and configuration of the cortical sulci, basal cisterns and ventricles are within normal limits. The post-white differentiation is preserved. No evidence of mass effect, midline shift, or edema. The osseous structures are unremarkable. The visualized portions of the paranasal sinuses are clear. IMPRESSION:Normal non-contrast CT scan of the head. Chest x-ray as per my interpretation elevated right hemidiaphragm, no congestion EKG as per my interpretation : Rate 55, sinus bradycardia, normal axis, no ischemia
[2021-11-01] MEDS ORDERED: METOPROLOL TARTRATE 25 MG TAB PO STA (03:54)
[2021-11-01] MEDS ORDERED: clonazePAM 0.5 MG TAB PO STA (03:54)
[2021-11-01] MEDS ORDERED: HYDROCODONE/ACETAMOPHEN 5/325MG TAB PO STA (03:54)
[2021-11-01] MEDS ORDERED: PARoxetine HCL 10 MG TAB PO ONE (03:54)
[2021-11-01] MEDS ORDERED: PROMETHAZINE HCL 12.5 MG in SODIUM CHLORIDE 0.9% 50 ML IV PRN (04:23)
[2021-11-01] MEDS ORDERED: clonazePAM 0.5 MG TAB PO PRN (04:23)
[2021-11-01] MEDS ORDERED: ACETAMINOPHEN 325 MG TAB PO PRN (04:23)
[2021-11-01 05:50] LABS: Basophils # (auto) 0.03 K/uL (0-0.2); Basophils % (auto) 0.6 %; Eosinophils # (auto) 0.22 K/uL (0-0.50); Eosinophils % (auto) 4.1 %; Hematocrit (blood only) 31.4 % (34.1-44.9); Hemoglobin 10.9 g/dl (12.0-16.0); Immature Granulocytes # (auto) 0.02 K/uL (0.00-0.02); Immature Granulocytes % (auto) 0.4 %; Lymphocytes # (auto) 1.45 K/uL (1.2-3.4); Lymphocytes % (auto) 27.1 %; Mean Corpuscular Hgb Conc 34.7 g/dL (32.0-36.0); Mean Corpuscular Volume 86.5 fL (80.0-100.0); Mean Platelet Volume 10.7 fL (9.4-12.3); Monocytes # (auto) 0.61 K/uL (0.24-0.82); Monocytes % (auto) 11.4 %; Neutrophils # (auto) 3.03 K/uL (1.4-6.5); Neutrophils % (auto) 56.4 %; Platelet Count 214 K/uL (130-400); RDW Coefficient of Variation 11.9 % (11.5-14.5); RDW Standard Deviation 38.2 fL (36.4-46.3); Red Blood Count 3.63 M/uL (3.93-5.22); White Blood Count 5.36 K/ul (4.8-10.8)
[2021-11-01 06:32] LABS: BUN Creatinine Ratio 23.3 (10-20); Calcium 8.5 mg/dl (8.5-10.1); Creatinine Clr Calc Pharmacy 90.4 ml/min; Est GFR (African American) 86.3 ml/min; Est GFR (Non-African American) 74.5 ml/min; Potassium 3.5 mmol/L (3.5-5.1)
--- NOTE | 2021-11-01 06:54 | XRay Report ---
XR chest 1V portable HISTORY: 60 years-old Female hyponatremia COMPARISON: Chest radiographs 06/11/2017 TECHNIQUE: AP view of the chest FINDINGS: Cardiomediastinal and hilar silhouettes are within normal limits. No pneumothorax, pleural effusion, airspace consolidation or overt pulmonary edema. Degenerative changes of the shoulders and spine. IMPRESSION: No acute process. ACT 112: Negative or not required by law. The above report was generated using voice recognition software. It may contain grammatical, syntax o r spelling errors. Electronically signed by: Adria Delgado M.D. 11/01/2021 6:53 AM
--- NOTE | 2021-11-01 07:07 | CT Scan Report ---
CT head/brain wo con CLINICAL HISTORY: 60 years-old Female with altered ms. Acutely altered mental status TECHNIQUE: Multiple axial CT images of the head were obtained without contrast. A dose lowering tech nique was utilized adhering to the principles of ALARA. CT DOSE: 614.27 mGy.cm COMPARISON: None. FINDINGS: No acute intracranial hemorrhage, midline shift, intracranial mass, hydrocephalus, territorial ischem ia or abnormal extra-axial collection. Mild involutional changes. The calvarium is intact. The paranasal sinuses, mastoid air cells, and middle ear cavities are clear . IMPRESSION: No acute intracranial abnormality. ACT 112: Negative or not required by law. The above report was generated using voice recognition software. It may contain grammatical, syntax o r spelling errors. Electronically signed by: Adria Delgado M.D. 11/01/2021 7:06 AM
[2021-11-01] MEDS: HYDROCODONE/ACETAMOPHEN 5/325MG TAB PO PRN ×2 (08:06→13:17)
[2021-11-01] MEDS: PSYLLIUM or GUAR GUM FIBER POWDER PACKET PO SCH ×2 (08:08→13:07)
[2021-11-01] MEDS ORDERED: ENOXAPARIN INJ 40 MG/0.4 ML SYR SQ SCH (09:00)
[2021-11-01] MEDS ORDERED: LOSARTAN POTASSIUM 25 MG TAB PO SCH (09:00)
[2021-11-01] MEDS ORDERED: DOCUSATE SODIUM 100 MG CAP PO SCH (09:00)
[2021-11-01] MEDS ORDERED: METOPROLOL TARTRATE 25 MG TAB PO SCH (09:00)
[2021-11-01] MEDS ORDERED: PARoxetine HCL 10 MG TAB PO SCH (16:00)
--- NOTE | 2021-11-01 17:05 | Discharge Summary ---
Date of Service November 01, 2021 Admission HPI Per Admitting Provider History obtained from patient and records. Medical history significant for hypertension, pulmonary embolism status post Coumadin, history of bariatric surgery, chronic anemia (baseline hemoglobin of 11), anxiety/mood disorder, chronic hyponatremia, past tobacco abuse. Patient has always been a water drinker. Usual consumption of 1.5 L daily. Yesterday, patient consumed more water than usual because it was a hot day at work. Patient thinks she may have consumed 3.5 L yesterday. Patient noted to be disoriented at work. Achy headache symptoms. No chest pain, no shortness of breath, no abdominal pain, no dysuria symptoms. NSS administered upon arrival at the ER. Patient feels much better. Patient mentation currently back to baseline as per daughter. 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 [employer] Principal Diagnosis Acute hyponatremia Polydipsia Discharge Exam CONSTITUTIONAL: obese, vitals as above, generally well-appearing, NAD EYES: normal conjunctivae, no scleral icterus, ENT: external ear and nose normal, NECK: trachea midline, RESPIRATORY: clear to auscultation bilaterally, no crackles, rales or wheezes, normal respiratory effort CARDIOVASCULAR: regular rate and rhythm, S1 and 2 heard without murmurs, gallops or rubs, no JVD, no peripheral edema CHEST: inspection of chest was normal GASTROINTESTINAL: soft, nontender, ND, no guarding MUSCULOSKELETAL: strength 5/5 throughout, head is normocephalic and atraumatic SKIN: warm and dry, NEUROLOGIC: CN 2-12 grossly intact, no sensory deficit, normal cognition, normal speech, no tremor, no gross focal deficits. PSYCHIATRIC: alert cooperative and oriented to person, place and time. Euthymic mood, makes good eye contact, language grossly intact, recent and remote memory grossly intact. Discharge Data Allergies Allergy/AdvReac Type Severity Reaction Status Date / Time No Known Allergies Allergy Unknown Verified 10/31/21 23:55 Consultations 11/01/21 02:42 ED Decision to Admit Stat Ordered Studies 10/31/21 23:32 CT head/brain wo con Urgent Hospital Course (1) Acute hyponatremia: (2) Morbid obesity: (3) UTI (urinary tract infection): Plan 60 yo F presented to the ER after acute confusion. She was hyponatremic with a normal blood glucose level. She reportedly drank a significant amount of water (90-120oz) within 8 hours. She was given some intravenous normal saline and was admitted to the medicine team. Her Na improved from 128 to 137 the following day. Symptoms had resolved completely, and she was feeling fine. Later a urinary tract infection was found after she was discharged, and she was placed on a short course of antibiotics for this. She also noted possible hypoglycemia 2/2 her history of gastric bypass as she has noted this in the past. All of these may have contributed to her acute metabolic encephalopathy; however, it was resolved by time of discharge, and she was sent home in stable condition with close primary care follow-up recommended. She was educated on appropriate hydration with free water and verbalized understanding with intent to comply. Total Time Total Time Spent Total Time Spent (In Minutes): 60 Discharge Plan Discharge Items Patient Disposition: Home - Self-Care Reason For Visit: HYPONATREMIA Discharge Diagnosis: Acute hyponatremia Polydipsia Condition on Discharge: Good Activity: Resume your previous activity Non-emergency contact: Primary Care Provider Call non-emergency contact if: you have any medication questions, your symptoms worsen, your pain is not controlled, your pain is worsening, your pain is unusual for you, your pain is concerning for you and you have a fever Follow-up/Referrals: Leonel Jc M.D. [Primary Care Provider] - Diet: Regular Addtl Attending Provider Instructions: Please take all medications as instructed on discharge list below. Please cap you daily water intake to 2000ml (8 cups or 70 fl oz) per day and consult your physician if you still feel this is not enough to hydrate you. Please follow-up with your primary care provider within one week to touch base after your discharge and continue to titrate your metoprolol off as tolerated. At this time it may be recommended to repeat a check on your sodium. You may also want to pursue referrals to endocrinology and/or bariatrics at this time. It was a pleasure taking care of you! Please call if you have any questions or problems. You can reach a [facility] hospitalist on duty at [facility] 24 hours a day by calling [phone]. Take care of yourself. Anny Rodriguez DO [facility] Hospitalist Pending Studies at Discharge: No Stand-Alone Forms: My [facility] Medications and DC Order Prescriptions: New nitrofurantoin monohyd/m-cryst [Macrobid] 100 mg capsule 100 mg PO BID Qty: 10 0RF Rx Instructions: must administer with a meal/food Continued paroxetine HCl 10 mg tablet 10 mg PO Q12H Rx Instructions: MUST BE GIVEN 12HR APART. clonazepam 0.5 mg tablet 0.5 mg PO BID PRN (Reason: Anxiety) acetaminophen [Tylenol Extra Strength] 500 mg Tablet 1,000 mg PO DIRECTED PRN (Reason: Pain) losartan 25 mg tablet 25 mg PO DAILY docusate sodium [Stool Softener] 250 mg Capsule 250 mg PO TID psyllium husk 0.52 gram Capsule 2.18 g PO TID Rx Instructions: TAKES 4 CAPSULES TID Changed metoprolol tartrate 50 mg tablet 25 mg PO BID Qty: 30 0RF Discharge Orders: Discharge Order (Routine); Ordered 11/01/21 Ordered By: Anny Franklin/Other Patient Handouts: ED Hyponatremia Admission Data Admit Date/Time: 11/01/21 03:58 Attending Provider: Anny Rodriguez Admit Provider: Efren Westbrook Primary Care Provider: Leonel Jc Other Providers: Efren Westbrook Other Interventions: Discharge Summary Assessment (RN) Last Done: 11/01/21 17:11
--- NOTE | 2021-11-02 21:48 | Electrocardiogram Report ---
Test Reason : Blood Pressure : / mmHG Vent. Rate : 058 BPM Atrial Rate : 058 BPM P-R Int : 206 ms QRS Dur : 080 ms QT Int : 426 ms P-R-T Axes : 035 022 043 degrees QTc Int : 418 ms Sinus bradycardia Otherwise normal ECG When compared with ECG of 11-JUN-2017 21:55, Vent. rate has decreased BY 43 BPM Confirmed by Sonny Mcdaniel ([id number]) on 11/02/2021 9:48:24 PM Referred By: REFERRED SELF Confirmed By:Sonny Mcdaniel
--- NOTE | 2021-11-03 07:45 | Communication Note ---
Date of Service: November 03, 2021 Contacted patient regarding positive urine culture. As it is uncertain if UTI may have contributed somewhat to her symptoms, opted for a short course of antibiotics despite no classic UTI symptoms including no dysuria, urinary urgency or hematuria. She verbalized understanding with intent to comply. Anny Rodriguez DO [facility]
--- NOTE | 2021-11-08 13:45 | Coding Query ---
CODING QUERY To promote full compliance with coding requirements relating to patient care, provider participation is requested in all cases of auto locator uncertainty. Please assist us with the question(s) below: Coding Question(s): Patient admitted with altered mental status due to hyponatremia. Brief 1-day stay. Pt noted to be disoriented at work and not consuming many fluids. Discharge Summary stated hyponatremia, possible hypoglycemia 2/2 history of gastric bypass and/or UTI may have all played a role in encephalopathy. Late entry 11/03 mentioned positive urine culture may also have contributed to symptoms. Treatment consisted of serial chemistries and NSS . Please document, if known or suspected, the type of encephalopathy present on admission. Physician's Response(s): acute metabolic encephalopathy Principal Diagnosis: "that condition established after study, to be chiefly responsible for occasioning the admission of the patient to the hospital for care." Co-Existing Principal Diagnosis: "when two or more diagnoses equally meet the criteria for principal diagnosis as determined by the circumstances of admission, diagnostic work up, and/or therapy provided, and the Alphabetic Index, Tabular List, or another coding guideline does not provide sequencing direction, any one of the diagnoses may be sequenced first." "When the physician has documented what appears to be a current diagnosis in the body of the record, but has not included the diagnosis in the final diagnostic statement, the physician should be asked whether the diagnosis should be added." (Source Coding [facility] 2 QTR90. p3-4) FANNIE
== END 2021-11-01 17:34 | disposition home or self-care (01) | DRG 640 ==
LOC: ED 23:05 → EDINP 11-01 03:58 → 2N 11-01 06:42
DX: Z98.84 Bariatric surgery status; Z68.42 Body mass index [BMI] 45.0-49.9, adult; E87.1 Hypo-osmolality and hyponatremia; F41.8 Other specified anxiety disorders; I10 Essential (primary) hypertension; Z86.711 Personal history of pulmonary embolism; E66.01 Morbid (severe) obesity due to excess calories; G93.41 Metabolic encephalopathy; N39.0 Urinary tract infection, site not specified; D64.9 Anemia, unspecified; E16.2 Hypoglycemia, unspecified

== ENCOUNTER 2022-09-18 08:17 | Observation (INO) ==
--- NOTE | 2022-09-02 09:51 | PAT Medication Instructions ---
Medication Instructions Date of Service September 02, 2022 Home Medications Medication Instructions Recorded Edgardo Michaels #1 ea 08/29/22 acetaminophen 500 mg tablet (Tylenol Extra Strength) 1,000 mg PO UD PRN clonazepam 0.5 mg tablet 0.25 - 0.5 mg PO BID PRN docusate sodium 250 mg capsule (Stool Softener) 250 mg PO TID PRN losartan 25 mg tablet 25 mg PO QAM psyllium husk 0.52 gram capsule 2.18 g PO TID fluoxetine 10 mg tablet 10 mg PO QPM hydrocodone 10 mg-acetaminophen 325 mg tablet 1 tab PO Q6H PRN multivit-iron 18 mg-folic acid 400 mcg-calcium 500 mg-minerals tablet (Women's One Daily) 1 tab PO BID polyethylene glycol 3350 17 gram/dose oral powder (Miralax) 17 g PO DAILY PRN DO NOT take the morning of surgery docusate sodium 250 mg capsule (Stool Softener) 250 mg PO TID PRN losartan 25 mg tablet 25 mg PO QAM psyllium husk 0.52 gram capsule 2.18 g PO TID multivit-iron 18 mg-folic acid 400 mcg-calcium 500 mg-minerals tablet (Women's One Daily) 1 tab PO BID polyethylene glycol 3350 17 gram/dose oral powder (Miralax) 17 g PO DAILY PRN Take morning of surgery With a small sip of water, OTHERWISE NOTHING TO EAT OR DRINK AFTER MIDNIGHT: acetaminophen 500 mg tablet (Tylenol Extra Strength) 1,000 mg PO UD PRN(if needed) clonazepam 0.5 mg tablet 0.25 - 0.5 mg PO BID PRN(if needed) hydrocodone 10 mg-acetaminophen 325 mg tablet 1 tab PO Q6H PRN(if needed) Take evening before surgery clonazepam 0.5 mg tablet 0.25 - 0.5 mg PO BID PRN(if needed) docusate sodium 250 mg capsule (Stool Softener) 250 mg PO TID PRN(if needed) psyllium husk 0.52 gram capsule 2.18 g PO TID fluoxetine 10 mg tablet 10 mg PO QPM hydrocodone 10 mg-acetaminophen 325 mg tablet 1 tab PO Q6H PRN(if needed) multivit-iron 18 mg-folic acid 400 mcg-calcium 500 mg-minerals tablet (Women's One Daily) 1 tab PO BID Other Notes If you have any questions please call us at [phone] or [phone] or [phone] or [phone]
--- NOTE | 2022-09-05 10:57 | Anesthesiology Consultation ---
Date of Service September 05, 2022 Assessment & Plan (1) Encounter for pre-operative examination: Plan - Outpatient joint assessment: Patient is currently scheduled for inpatient pathway. If re-evaluated pending system levels during current pandemic/surgeon requests outpatient pathway, patient is not recommended candidate for outpatient joint program from anesthesia standpoint. Chart Review Chart Review: Acceptable Risk for Surgery and Patient seen in Pre Admission Testing Teaching & Discussion Pre-Anesthesia Teaching/Discussion Notes: Instructed NPO after midnight before surgery, except medications with 15 cc of water. Medication instructions provided according to the PAT guidelines. History Surgery Operation Date: 09/18/22 10:50 Proposed Procedures p Left Total Knee Arthroplasty - Albert Tolbert MD Height/Weight Height: 5 ft 4 in Weight: 116.8 kg Allergies Allergy/AdvReac Type Severity Reaction Status Date / Time latex Allergy Hives on Verified 09/02/22 08:33 hands, eyes "became bloodshot" Medications Home Medications Medication Instructions Recorded Confirmed Last Taken acetaminophen 500 mg tablet 1,000 mg PO UD PRN Pain 10/31/21 09/02/22 Unknown (Tylenol Extra Strength) clonazepam 0.5 mg tablet 0.25 - 0.5 mg PO BID PRN Anxiety 10/31/21 09/02/22 Unknown docusate sodium 250 mg capsule 250 mg PO TID PRN Constipation 10/31/21 09/02/22 10/31/21 (Stool Softener) losartan 25 mg tablet 25 mg PO QAM 10/31/21 09/02/22 10/31/21 psyllium husk 0.52 gram capsule 2.18 g PO TID 10/31/21 09/02/22 10/31/21 Wheeled Walker #1 ea 08/29/22 08/29/22 Unknown fluoxetine 10 mg tablet 10 mg PO QPM 09/02/22 09/02/22 Unknown hydrocodone 10 mg-acetaminophen 1 tab PO Q6H PRN Pain 09/02/22 09/02/22 Unknown 325 mg tablet multivit-iron 18 mg-folic acid 400 1 tab PO BID 09/02/22 09/02/22 Unknown mcg-calcium 500 mg-minerals tablet (Women's One Daily) polyethylene glycol 3350 17 17 g PO DAILY PRN Constipation 09/02/22 09/02/22 Unknown gram/dose oral powder (Miralax) ascorbate calcium (vitamin C) 500 PO 09/05/22 Unknown mg capsule calcium carb-ergocalciferol (vit tab PO 09/05/22 Unknown D2) 600 mg calcium-200 unit tablet ibuprofen 200 mg capsule 200 mg PO Q6H PRN Pain 09/05/22 09/05/22 Unknown omega-3 fatty acids 300 mg capsule mg 09/05/22 Unknown valerian root 250 mg capsule mg PO QPM 09/05/22 Unknown Additional Notes: Pt reported also taking ibuprofen, fish oil, sleep supplement containing valerian root, calcium and vitamin c supplements. She was instructed, and it was written on provided medication instructions, that patient is to discuss ibuprofen instructions with surgeon. Is to stop fish oil and sleep supplement 2 weeks prior to surgery and to not take calcium or Vitamin C supplements day of surgery. She verbalized full understanding and agreement, denied questions, concerns or additional medications/supplements. Past Medical History Medical History (Updated 09/05/22 @ 11:03 by Rossi Jimenez PA-C) Anxiety and depression Constipation GERD (gastroesophageal reflux disease) rare, controlled, stable per pt History of asthma stress induced for first year following gastric bypass/pulmonary embolism>no issues "for years" History of blood transfusion 2006 History of COVID-19 2020, home test, not hosp; loss taste/smell>resolved in 2-3 weeks Hx of sleep apnea following gastric bypass>tested again, "no longer has it" Hypertension controlled, stable per pt PTSD (post-traumatic stress disorder) Pulmonary embolism 2006, following gastric bypass Patient denies h/o stroke, seizures, heart attack, heart failure, or DM. Exercise / Class Metabolic Activity II 4-5 Yardwork/Stairs/Walk up hill (denies chest discomfort or shortness of breath with 1 FOS, ambulates with cane) Past Surgical History Surgical History (Updated 09/05/22 @ 11:02 by Rossi Jimenez PA-C) History of esophagogastroduodenoscopy (EGD) History of partial hysterectomy w/mesh placed for bladder "tacking" History of Igor-en-Y gastric bypass 2006-open procedure Hx laparoscopic cholecystectomy Hx of bilateral cataract extraction Hx of endoscopic retrograde cholangiopancreatography Hx of tubal ligation Status post right knee replacement Past Anesthesia History No Hx of Anesthesia Complications and No Family Hx of Anesthesia Complications History of PONV No Hx of PONV and No Hx of Motion Sickness Social History Smoking Status: Former smoker Do You Dip or Chew Tobacco: No Smoking End Date: longest span was 3 months at one time, 10 years ago Hx Alcohol Use: Yes alcohol intake frequency: holidays/special occasions only Hx Substance Use: No substance use type: does not use Review of Systems Patient denies chest pain, shortness of breath, dyspnea on exertion, fever, chills, cough, wheezing, or palpitations. Physical Exam Vital Signs Vitals BP 143/83 P 72 TEMP 98.1 SP02 97% on RA RESP 18 Physical Full cervical extension range of motion without pain TMD 3.5 finger breadths Mallampati Score 2 Dentition: intact, denies chipped or loose teeth, caps/crowns, implants or bridges Lungs: normal respiratory effort. Good air movement, clear throughout to auscultation, no adventitious breath sounds Cardiac: regular rate and rhythm, no murmurs noted Carotid arteries: negative bruit bilat Lab Results Anesthesia Preop Results Results Anesthesia Widget: WBC 5.58 K/ul (4.8-10.8) 09/05/22 Hgb 12.3 g/dl (12.0-16.0) 09/05/22 Hct 36.5 % (37.0-47.0) L 09/05/22 Plt 236 K/uL (130-400) 09/05/22 Na 139 mmol/L (136-145) 09/05/22 K 4.0 mmol/L (3.5-5.1) 09/05/22 Cl 104 mmol/L (98-107) 09/05/22 CO2 27 mmol/L (21-32) 09/05/22 BUN 15 mg/dl (6-23) 09/05/22 Creat 0.87 mg/dl (0.6-1.2) 09/05/22 Glucose Level 94 mg/dl (70-99(Fasting)) 09/05/22 PT 9.9 Seconds (9.0-12.0) 09/05/22 PTT 24.5 Seconds (21.0-31.0) 09/05/22 INR 0.9 (0.9-1.1) 09/05/22 Blood Type B Negative 09/05/22 Antibody Screen NEGATIVE 09/05/22 Testing Electrocardiogram Date: 10/31/21 Sinus bradycardia, rate 58 bpm Chest X-Ray Date: 11/01/21 *1view* no acute process COVID-19 Risk Screen Screening Information COVID-19 Screen Date: 09/05/22 Exposure 21 Days Family/Household +COVID Last 21 Days: No Exposure 10 Days Any COVID Exposure Last 10 Days: No Symptoms Last 10 Days Experienced COVID Sx Last 10 Days: No + COVID 0-90 Days COVID + in Last 0-90 Days: No
[~2022-09-18 08:17] MED LIST: ACETAMINOPHEN 500 MG TAB PO SCH; BUPIVACAINE 0.25% PF 30 ML VIAL ONE; BUPIVACAINE 0.5 % 5 MG/1 ML PF 10ML VIAL ONE; BUPIVACAINE LIPOSOME/PF 266 MG, BUPIVACAINE/EPINEPHRINE 50 ML, SODIUM CHLORIDE 0.9% PF ... INFIL SCH; CeleBREX 200 MG CAP PO SCH; FAMOTIDINE 20 MG TAB PO SCH; LR 500ML BOLUS, THEN 15ML/HR IV SCH; LR 60ML/HR IV SCH; METOCLOPRAMIDE HCL 10 MG TABLET PO SCH; TRANEXAMIC ACID 1,000 MG **IV Intra-op IV SCH; ceFAZolin 2000MG 2,000 MG/15 ML SYR IV SCH; dexAMETHasone**PF** 10 MG/ML VIAL IV SCH
--- NOTE | 2022-09-18 09:10 | History & Physical Bridge Note ---
Date of Service September 18, 2022 History & Physical Bridge Note I have examined the patient, reviewed the History & Physical and in the interval since the performance of the History & Physical I have noted the following changes of clinical significance: no changes noted
[2022-09-18] MEDS ORDERED: MIDAZOLAM HCL 1 MG/ML 2ML VIAL ONE ×2 (09:32→09:52)
[2022-09-18] MEDS ORDERED: ONDANSETRON INJ 2 MG/ML 2 ML VIAL IV PRN ×2 (09:34→14:27)
[2022-09-18] MEDS ORDERED: fentaNYL citrate PF 100 MCG/2 ML VIAL IV PRN (09:34)
[2022-09-18] MEDS ORDERED: ePHEDrine sulfate 50 MG/ML AMP IV PRN (09:34)
[2022-09-18] MEDS ORDERED: ATROPINE SULFATE 0.1 MG/ML 10ML SYR IV PRN (09:34)
[2022-09-18] MEDS ORDERED: PROPOFOL IV EMULSION 10 MG/ML 20 ML VIAL IV ONE ×2 (09:55→12:59)
[2022-09-18] MEDS ORDERED: BUPIVACAINE/EPINEPHRINE 0.25% 1:200,000 30 ML VIAL ONE (11:16)
[2022-09-18] MEDS ORDERED: SODIUM CHLORIDE 0.9% PF 50 ML VIAL ONE (11:16)
[2022-09-18] MEDS ORDERED: BUPIVACAINE LIPOSOME 1.3% 266 MG/20 ML VIAL ONE (11:17)
[2022-09-18] MEDS ORDERED: KETAMINE 50 MG/5 ML SYRINGE ONE (11:41)
--- NOTE | 2022-09-18 13:31 | Operative Report ---
PG Post Operative Report Pre & Post Diagnosis Operation Date: 09/18/22 10:35 Pre-Op Diagnosis: Left Knee Degenerative Joint Disease Post-Op Diagnosis: Left Knee Degenerative Joint Disease I identified the patient and participated in the time-out.: Yes Procedure Operation Date: 09/18/22 10:35 Actual Procedures p Left Total Knee Arthroplasty(Left) - Albert Tolbert MD Surgeon Albert Tolbert MD Center Punch Operator Davi Arguello PA-C Estimated Blood Loss 50 Findings Consistent with Post-Op Diagnosis Operative findings revealed a very large soft tissue envelope. She had extensive grade 4 [id number] disease in all 3 compartments. Osteophytes in all 3 compartments. Moderate-sized joint effusion. Fairly stiff knee with only about 105 degrees of flexion preoperatively. Specimens Left knee sent for pathology Anesthesia Type Spinal MAC Complications none Disposition Accompanied Patient To Recovery: No Indications Patient is a 61-year-old female is had a long history of knee problems. She had right knee replaced 15 years ago. Over the past several years she developed increased pain discomfort in her left knee. Attempted conservative treatment which became less successful over time. She is elected proceed with total knee arthroplasty. Description of Procedure Operative implants consist of: 1. Biomet Vanguard size 60 left posterior stabilized femoral component. 2. Biomet size 67 tibial tray. 3. 14 mm posterior stabilized polyethylene insert. 4. 28 x 8 all Paller patella. The patient was taken to the operating, identified, placed on the operating table supine position protectors were properly padded. IV antibiotics tried by anesthesia team. A spinal anesthetic and abductor canal block had been provided in the holding area. Murry catheter was placed in sterile fashion. Left atrium was then placed in the left lower extremities and prepped and draped in usual sterile fashion. The left leg was elevated exsanguinated with use of an Esmarch in terms playset 300 mmHg. An anterior posterior left knee was then performed through a longitudinal incision centered over the patella. Sharp dissection Through subcutaneous tissue down the extensor mechanism. A medial prepped arthrotomy incision was made. Some subperiosteal dissection was carried out medially. The fat pad was resected from Neath patella tendon. Lateral patellofemoral ligament was released. Patella subluxated laterally knee was flexed with the osteophytes taken off distal femur. ACL PCL then released from distal femur the tibia subluxated anteriorly. External tibial alignment jig was then placed in the interface the tibia and adjusted 14 mm medially. Proximal tibial cut was made remove about 2 mm of bone from the medial side. The tibia sized to a size 67. Some osteophytes taken off medial and posterior medially. Attention drawn the femur. The distal femur with a sharp drop with intramedullary canal was suction. A left 5 degree valgus cutting guide was placed. Distal femoral cutting block was pinned in place. This femoral cut was made to take an additional 3 mm bone off distal femur. The femur was then sized to a size 60. The AP cutting block was pinned parallel to the epicondylar axis which was 5 degrees of external rotation. Anterior cut, anterior chamfer, posterior cut, posterior chamfer cuts were made for the box cutting guide was placed in just slight lateral box cut was made. The knee was flexed. The remnants of the medial lateral menisci were excised. The osteophytes taken off the posterior aspect the femur. A trial femoral component was placed. Tibial tray was pinned in maximum external rotation and the drill and stem punch were used to create defect in the proximal tibia for the tibial tray. Knee was then trialed and the 14 mm insert fit most appropriate. Attention drawn the patella. The patella was cleaned of all soft tissues. Patella thickness measured 20 mm in thickness was cut down to 13. Was sized to a size 28 patella. The lug holes were drilled for the 28 patella. Lateral osteophytes removed. Patella button was placed. Knee was taken through range of motion and the patella tracked nicely with no thumbs test. Attention drawn to placing permanent components. All trial components removed. Bone plug was placed in the distal femur limit blood loss. Double batch G cement was mixed. Biomet Vanguard size 60 left posterior stabilized femoral component, size 67 tibial tray, a 14 mm pro stabilized polyethylene insert, and a 28 x 8 all Paller patella then cemented in place. Knee was brought into full extension till cement hardened. Final cement check was then performed and the pericapsular tissues were injected with total 100 cc of combination of 20 cc of Exparel, 30 cc normal saline, 50 cc of quarter percent Marcaine with epinephrine. Patient did receive 1 g tranexamic acid. The tourniquet was let down for final tourniquet time of 56 minutes. Hemostasis reduced electrocautery. Extensor mechanism then closed with combination 1 PDS suture #1 Vicryl suture in [id number] fashion. Extensor mechanism checked found to be intact and the subcutaneous tissue then closed with 2 Dexon suture in a buried interrupted fashion skin was closed skin carlos. Leg was then cleaned and dried and a sterile dressing was Xeroform, 4 x 4's, sterile cast padding, Billy bandage were applied. Patient then transferred to the recovery room in stable condition. Patient tolerated procedure well and there were no complications. Davi Arguello, my physician child care assistant, was present for the entire procedure. His assistance was essential and required for appropriate patient positioning, prepping and draping, surgical exposure, performing the technical details of the operation, placement the implants, closure of the wound, and placement of the sterile bandage. I attest to the content of the Intraoperative Record and any orders documented therein. Any exceptions are noted below.
--- NOTE | 2022-09-18 14:07 | XRay Report ---
XR knee LT 1 or 2V routine CLINICAL HISTORY: Postoperative evaluation. COMPARISON: Knee radiographs August 29, 2022. FINDINGS: Alignment of the total left knee arthroplasty is anatomic. There is no periprosthetic frac ture or unexpected radiopaque foreign body. There are skin carlos. IMPRESSION: Expected findings following total left knee arthroplasty. ACT 112: Negative or not required by law. Electronically signed by: Case Dennis M.D. 09/18/2022 2:06 PM
[2022-09-18] MEDS ORDERED: NON-FORMULARY MEDICATION (Docusate Sodium [Stool Softener] 250 mg Capsule) PO PRN (14:27)
[2022-09-18] MEDS ORDERED: POLYETHYLENE (MIRALAX) 17 GM PACK PO PRN (14:27)
[2022-09-18] MEDS ORDERED: ALUMINUM/MAGNESIUM SUSP 30 ML UDC PO PRN (14:27)
[2022-09-18] MEDS ORDERED: MAGNESIUM HYDROXIDE SUSP 30 ML UDC PO PRN (14:27)
[2022-09-18] MEDS ORDERED: SODIUM CHLORIDE 0.9% 1000ML 1,000 ML IV SCH (14:27)
[2022-09-18] MEDS ORDERED: METOCLOPRAMIDE HCL INJ 5 MG/ML 2 ML VIAL IV PRN (14:27)
[2022-09-18] MEDS ORDERED: bisacodyL 10 MG SUPP PR PRN (14:27)
[2022-09-18] MEDS ORDERED: NALOXONE HCL 0.4 MG/1 ML VIAL/CARP IV PRN (14:27)
[2022-09-18] MEDS: HYDROmorphone HCL 2 MG TAB PO PRN ×2 (15:03→21:45)
[2022-09-18] MEDS: ACETAMINOPHEN 500 MG TAB PO SCH ×2 (15:26→20:22)
[2022-09-18] MEDS: KETOROLAC 30 MG/ML VIAL IV SCH ×2 (15:26→21:44)
--- NOTE | 2022-09-18 16:23 | Anesthesiology Progress Note ---
Date of Service September 18, 2022 Anesthesia Post Procedure Vital Signs Vital Signs: Temp Pulse Pulse Resp BP BP Pulse Ox 09/18/22 15:28 36.4 C L 77 18 130/94 95 09/18/22 15:00 36.5 C 74 18 119/83 100 09/18/22 14:25 36.4 C L 78 18 115/80 99 09/18/22 14:05 79 21 123/81 100 09/18/22 13:55 83 16 116/79 95 09/18/22 13:45 86 16 121/74 95 09/18/22 13:35 88 14 119/75 96 09/18/22 13:25 36.3 C L 95 H 16 121/70 97 09/18/22 08:35 36.8 C 82 20 128/83 98 09/18/22 08:44 36.8 C 82 20 128/83 98 O2 Del Method 09/18/22 15:28 Room Air 09/18/22 15:00 Room Air 09/18/22 14:25 Room Air 09/18/22 14:05 Room Air 09/18/22 13:55 Room Air 09/18/22 13:45 Room Air 09/18/22 13:35 Room Air 09/18/22 13:25 Room Air 09/18/22 08:35 Room Air 09/18/22 08:44 Room Air Pain Intensity Left Knee: Pain Intensity: 4 Transfer of Care Handoff Completed per policy Notes Mental Status: alert / awake / arousable and participated in evaluation Patient Amnestic to Procedure: Yes Nausea / Vomiting: adequately controlled Pain: adequately controlled Airway Patency, RR, SpO2: stable & adequate BP & HR: stable & adequate Hydration State: stable & adequate Neuraxial Anesthesia: was administered and sensory block is resolving Anesthetic Complications: no major complications apparent and Pt Satisfied with anesthetic care
[2022-09-18] MEDS: ASCORBIC ACID 500 MG TAB PO SCH (16:28)
[2022-09-18] MEDS ORDERED: TRANEXAMIC ACID / 0.7% NACL 1,000 MG/100 ML BAG IV SCH (19:30)
[2022-09-18] MEDS: HYDROmorphone INJ 0.5 MG/0.5 ML SYR IV PRN (19:35)
[2022-09-18] MEDS: ceFAZolin 2000MG 2,000 MG/15 ML SYR IV SCH (19:35)
[2022-09-18] MEDS: DOCUSATE SODIUM 100 MG CAP PO SCH (20:22)
[2022-09-18] MEDS: PSYLLIUM or GUAR GUM FIBER POWDER PACKET PO SCH (20:22)
[2022-09-18] MEDS: SENNA 8.6 MG TAB PO SCH (20:22)
[2022-09-18] MEDS ORDERED: SENNA 8.6 MG TAB PO SCH (21:00)
[2022-09-18] MEDS ORDERED: FLUoxetine HCL 10 MG CAP PO SCH (21:00)
[2022-09-18] MEDS ORDERED: NON-FORMULARY MEDICATION (Multivit-Iron-Fa-Calcium-Mins [Women's One Daily] 18 mg iron-400 PO SCH (21:00)
[2022-09-18] MEDS: clonazePAM 0.25 MG TAB PO PRN (21:45)
[2022-09-19] MEDS: HYDROmorphone INJ 0.5 MG/0.5 ML SYR IV PRN ×2 (01:15→08:13)
[2022-09-19] MEDS: ceFAZolin 2000MG 2,000 MG/15 ML SYR IV SCH (03:07)
[2022-09-19] MEDS: KETOROLAC 30 MG/ML VIAL IV SCH ×2 (03:07→10:06)
[2022-09-19] MEDS: HYDROmorphone HCL 2 MG TAB PO PRN ×2 (05:46→12:07)
[2022-09-19] MEDS: clonazePAM 0.25 MG TAB PO PRN (07:24)
--- NOTE | 2022-09-19 07:25 | Orthopedic Progress Note ---
Date of Service September 19, 2022 Assessment & Plan (1) Status post left knee replacement: Patient is doing well postop day 1 from left knee replacement. Pain is controlled. She is neurologically intact. 1. DVT prophylax include Thiede teds SCDs and Xarelto due to her history of a DVT in the past 2. PT OT weight-bear as tolerated left total knee to protocol. 3. Disposition she is planned to be discharged home with some home therapy. Subjective . 61-year-old female now well postop day 1 from a left knee replacement. She is doing well. Pain is controlled. Denies any chest pain or shortness of breath. Not feeling dizzy or lightheaded. Hoping to go home today Review of Systems All systems reviewed & are unremarkable except as noted in HPI & below. Physical Exam . Physical examination was a pleasant middle-age female. Sitting in her bedside chair looks comfortable. Lungs clear to auscultation. Heart is regular rate and rhythm. Abdomen soft nontender nondistended per symptoms grossly neuro vas intact as follows. Examination left leg reveals dressing clean dry and intact. She can dorsiflex and plantarflex her foot appropriate. She can do a straight leg raise with some effort. Results & Data Results & Data Laboratory Results . Labs are pending. Diagnostic Findings . PG Care Time/CCT Total # of Minutes Spent Total Time Spent with Patient: Total time spent is greater than 50% in coordination of care (as documented) at patient's floor/unit and/or counseling patient: Coding Level of Care Code 44882 Post Operative Follow-Up Diagnoses Status post left knee replacement Z96.652
[2022-09-19] MEDS ORDERED: dexAMETHasone 10 MG in SYRINGE 0 ML IV SCH (08:00)
[2022-09-19 08:21] LABS: Hematocrit (blood only) 27.1 % (37.0-47.0); Hemoglobin 9.3 g/dl (12.0-16.0); Mean Corpuscular Hemoglobin 29.9 pg (25.0-34.0); Mean Corpuscular Hgb Conc 34.3 g/dL (32.0-36.0); Mean Corpuscular Volume 87.1 fL (80.0-100.0); Mean Platelet Volume 10.2 fL (9.4-12.4); Platelet Count 218 K/uL (130-400); RDW Standard Deviation 38.4 fL (36.4-46.3); Red Blood Count 3.11 M/uL (4.20-5.40); White Blood Count 8.54 K/ul (4.8-10.8)
[2022-09-19 08:33] LABS: BUN Creatinine Ratio 23.8 (10-20); Calcium 8.2 mg/dl (8.6-10.3); Creatinine Clr Calc Pharmacy 75.1 ml/min; Est GFR (African American) 70.6 ml/min; Est GFR (Non-African American) 60.9 ml/min; Potassium 3.7 mmol/L (3.5-5.1)
[2022-09-19] MEDS: DOCUSATE SODIUM 100 MG CAP PO SCH (08:47)
[2022-09-19] MEDS: PSYLLIUM or GUAR GUM FIBER POWDER PACKET PO SCH (08:48)
[2022-09-19] MEDS: SENNA 8.6 MG TAB PO SCH (08:49)
[2022-09-19] MEDS: ASCORBIC ACID 500 MG TAB PO SCH (08:50)
[2022-09-19] MEDS: ACETAMINOPHEN 500 MG TAB PO SCH (08:50)
[2022-09-19] MEDS ORDERED: MULTIVITAMIN TAB PO SCH (09:00)
[2022-09-19] MEDS ORDERED: LOSARTAN POTASSIUM 25 MG TAB PO SCH (09:00)
[2022-09-20] MEDS ORDERED: RIVAROXABAN 10 MG TABLET PO SCH (14:00)
--- NOTE | 2022-09-23 12:43 | Discharge Summary ---
Date of Service September 23, 2022 Discharge Data Procedures Performed Operation Date: 09/18/22 10:35 Actual Procedures p Left Total Knee Arthroplasty(Left) - Albert Tolbert MD Hospital Course (1) Status post left knee replacement: This is a 61 year old patient admitted on 09/18/22 and underwent total knee arthroplasty. She tolerated the procedure well and there were no complications. Transferred to the PACU post op and later to the orthopedic floor for further care. She was given ancef for antibiotic prophylaxis. She was also given LAZARA stockings, SCDs, and xarelto for DVT prophylaxis. Hemoglobin, hematocrit, and vital signs were monitored during her hospital stay and remained stable. Did not require any blood transfusions. There were no complications during her hospital stay. By post op day #1 the patient was tolerating a regular diet, pain was reasonably controlled with oral pain medicine, and she was participating in physical therapy. On post op day #1 the patient was discharged home and set up with home health care. __ was given printed discharge instructions including prescriptions for extra strength tylenol, cefadroxil, zofran, senokot, hydromorphone, and xarelto. Continue physical therapy, weight bearing as tolerated. Continue LAZARA stockings. Follow up approximately 2 weeks post op or sooner if there are problems or concerns. Coding Level of Care Code None Diagnoses Status post left knee replacement Z96.652
== END 2022-09-19 12:19 | disposition home health service (06) ==
LOC: ASU 08:17 → 3E 08:17
DX: Z86.718 Personal history of other venous thrombosis and embolism; Z96.651 Presence of right artificial knee joint; Z91.040 Latex allergy status; Z98.84 Bariatric surgery status; M17.12 Unilateral primary osteoarthritis, left knee; Z86.711 Personal history of pulmonary embolism; Z79.899 Other long term (current) drug therapy; F17.210 Nicotine dependence, cigarettes, uncomplicated; Z86.16 Personal history of COVID-19